=== PATIENT | female | born 1930 | race Caucasian/White ===

== ENCOUNTER 2017-09-02 19:41 | Inpatient (IN) | payer MEDICARE, BC ==
[~2017-09-02] VITALS: Ht 162.6 cm; Wt 78.1 kg
[~2017-09-02 19:41] MED LIST: CALCIUM CARBON650 M2 PO; CARDIZEM CD 18180 MG PO; CARTIA XT180 MG PO; COLCRYS0.6 MG PO; COUMADIN 6MG6 MG/TAB PO; COUMADIN4 MG PO; DEMADEX10 MG PO; HCTZ 25MG TAB25 MG PO; JANTOVEN5 MG PO; K-DUR20 MEQ PO; LIPITOR 10MG10 MG PO; MAG-OX 400400 MG/TAB PO; NORCO 325 MG-51 TAB PO; OMEGA-31 SGL PO; REQUIP0.25 MG PO; STOOL SOFTENER100 M2 PO; SUPER EPA 2002000 MG PO; VITAMIN B12 781 TAB PO; VITAMIN D31000 IU PO; ZYLOPRIM 100MG100 MG PO; ZYRTEC 10MG10 MG PO
[2017-09-02 20:35] LABS: BASO % 0.4 % (0.0-2.0); EOS % 0.1 % (0-4.0); GRAN # 6.5 (1.4-6.5); HEMATOCRIT 37.9 % (37.0-47.0); HEMOGLOBIN 12.7 g/dl (12.5-16.0); LYMPH % 12.2 % (20.0-51.0); MEAN CELL VOLUME 88 fl (80.0-100.0); MEAN CORPUSCULAR HEMOGLOBIN 30 pg (27.0-31.0); MEAN CORPUSCULAR HGB CONC 34 g/dl (33.0-37.0); MEAN PLATELET VOLUME 8.4 fl (7.4-10.4); MONO # 0.6 (0.1-0.6); MONO % 6.9 % (1.7-9.3); PLATELET COUNT 210 K/mm3 (130-400); RED BLOOD COUNT 4.29 M/mm3 (4.10-5.30); REDCELL DISTRIBUTION WIDTH-CV 14.9 % (11.5-14.5)
[2017-09-02] MEDS ORDERED: ZYLOPRIM 100MG100 MG PO (20:35)
[2017-09-02 20:47] LABS: ALBUMIN 4.1 gm/dL (3.5-5.0); BILIRUBIN,TOTAL 0.8 mg/dL (0.0-1.0); CALCIUM 9.5 mg/dL (8.4-10.2); CREATININE, serum 1.31 mg/dL (0.52-1.25); POTASSIUM 3.8 mmol/L (3.4-5.0); TOTAL PROTEIN 7.6 gm/dL (6.4-8.2)
[2017-09-02 20:51] LABS: INR 5.2 (0.8-3.0); PROTHROMBIN TIME 59.7 SECONDS (9.7-12.8)
[2017-09-02 21:00] LABS: TROPONIN-I 0.061 ng/mL (0.000-0.034)
[2017-09-02 23:51] LABS: COLLECTION METHOD CLEAN CATCH
[2017-09-03] VITALS (885 sets, daily range): BP systolic 96–165; BP diastolic 48–90; PULSE 72–87; TEMP 97.6–97.9; O2SAT 85–100
[2017-09-03 00:02] LABS: MUCOUS Present /lpf; PH 8 (5-8); SQUAMOUS EPITHELIAL 0-2 /hpf; URINE APPEARANCE Hazy; URINE BACTERIA Rare /hpf; URINE BILIRUBIN Negative (NEGATIVE); URINE BLOOD 1+ (NEGATIVE); URINE COLOR Yellow; URINE GLUCOSE Negative (NEGATIVE); URINE KETONE Negative (NEGATIVE); URINE LEUKOCYTE ESTERASE 3+ (NEGATIVE); URINE NITRATE Positive (NEGATIVE); URINE PROTEIN(semi-quant) Negative (NEGATIVE); URINE RBC None Seen /hpf; URINE UROBILINOGEN Negative (NEGATIVE)
[2017-09-03] MEDS ORDERED: FLEXERIL5 MG PO (02:08)
[2017-09-03] MEDS ORDERED: COLCRYS0.6 MG PO (02:09)
[2017-09-03] MEDS ORDERED: TYLENOL 500MG500 MG PO (02:10)
[2017-09-03 05:57] LABS: BASO % 0.3 % (0.0-2.0); EOS # 0.1 (0.0-0.7); EOS % 0.6 % (0-4.0); GRAN # 7.9 (1.4-6.5); GRAN % 80.4 % (42.2-75.2); HEMOGLOBIN 11.8 g/dl (12.5-16.0); LYMPH % 9.8 % (20.0-51.0); MEAN CELL VOLUME 91 fl (80.0-100.0); MEAN CORPUSCULAR HEMOGLOBIN 30 pg (27.0-31.0); MEAN CORPUSCULAR HGB CONC 33 g/dl (33.0-37.0); MEAN PLATELET VOLUME 8.8 fl (7.4-10.4); MONO # 0.9 (0.1-0.6); MONO % 8.6 % (1.7-9.3); PLATELET COUNT 222 K/mm3 (130-400); RED BLOOD COUNT 3.96 M/mm3 (4.10-5.30)
[2017-09-03 06:04] LABS: INR 3.4 (0.8-3.0); PROTHROMBIN TIME 38.5 SECONDS (9.7-12.8)
[2017-09-03 06:07] LABS: CREATININE, serum 1.2 mg/dL (0.52-1.25); POTASSIUM 3.7 mmol/L (3.4-5.0)
[2017-09-04] VITALS (53 sets, daily range): BP systolic 96–130; BP diastolic 42–60; PULSE 64–78; TEMP 96.7–98.5; O2SAT 85–99
[2017-09-04 06:26] LABS: BASO % 0.2 % (0.0-2.0); EOS # 0.1 (0.0-0.7); EOS % 0.6 % (0-4.0); GRAN # 7.7 (1.4-6.5); GRAN % 80.2 % (42.2-75.2); HEMOGLOBIN 11.5 g/dl (12.5-16.0); LYMPH # 0.8 (1.2-3.4); LYMPH % 8.8 % (20.0-51.0); MEAN CELL VOLUME 92 fl (80.0-100.0); MEAN CORPUSCULAR HEMOGLOBIN 30 pg (27.0-31.0); MEAN CORPUSCULAR HGB CONC 32 g/dl (33.0-37.0); MEAN PLATELET VOLUME 9.1 fl (7.4-10.4); MONO # 0.9 (0.1-0.6); MONO % 9.7 % (1.7-9.3); PLATELET COUNT 207 K/mm3 (130-400); RED BLOOD COUNT 3.88 M/mm3 (4.10-5.30); REDCELL DISTRIBUTION WIDTH-CV 15.3 % (11.5-14.5)
[2017-09-04 06:27] LABS: HEMATOCRIT 35.8 % (37.0-47.0); INR 2.7 (0.8-3.0); PROTHROMBIN TIME 31.2 SECONDS (9.7-12.8)
[2017-09-04 06:37] LABS: ANION GAP 8 mmol/L (7-16); BLOOD UREA NITROGEN 18 mg/dL (7-17); CALCIUM 8.9 mg/dL (8.4-10.2); CARBON DIOXIDE 30 mmol/L (22-30); CHLORIDE 98 mmol/L (98-107); CREATININE, serum 1.12 mg/dL (0.52-1.25); GLUCOSE 137 mg/dL (74-106); POTASSIUM 4.1 mmol/L (3.4-5.0); SODIUM 136 mmol/L (137-145)
[2017-09-05] VITALS (487 sets, daily range): BP systolic 92–123; BP diastolic 43–51; PULSE 52–69; TEMP 96.7–97.7; O2SAT 85–100
[2017-09-05 06:10] LABS: BASO % 0.3 % (0.0-2.0); EOS # 0.1 (0.0-0.7); EOS % 0.9 % (0-4.0); GRAN # 6.4 (1.4-6.5); GRAN % 82.1 % (42.2-75.2); HEMOGLOBIN 10.9 g/dl (12.5-16.0); LYMPH # 0.8 (1.2-3.4); LYMPH % 9.6 % (20.0-51.0); MEAN CELL VOLUME 91 fl (80.0-100.0); MEAN CORPUSCULAR HEMOGLOBIN 30 pg (27.0-31.0); MEAN CORPUSCULAR HGB CONC 33 g/dl (33.0-37.0); MEAN PLATELET VOLUME 9.1 fl (7.4-10.4); MONO # 0.5 (0.1-0.6); MONO % 6.6 % (1.7-9.3); PLATELET COUNT 200 K/mm3 (130-400); RED BLOOD COUNT 3.67 M/mm3 (4.10-5.30); REDCELL DISTRIBUTION WIDTH-CV 14.7 % (11.5-14.5)
[2017-09-05 06:11] LABS: HEMATOCRIT 33.5 % (37.0-47.0)
[2017-09-05 06:31] LABS: CALCIUM 8.7 mg/dL (8.4-10.2); CREATININE, serum 1.15 mg/dL (0.52-1.25); POTASSIUM 4.2 mmol/L (3.4-5.0)
[2017-09-05 08:08] LABS: PROTHROMBIN TIME 22.2 SECONDS (9.7-12.8)
[2017-09-05 18:04] LABS: HEMOGLOBIN 10.8 g/dl (12.5-16.0); MEAN CELL VOLUME 91 fl (80.0-100.0); MEAN CORPUSCULAR HEMOGLOBIN 30 pg (27.0-31.0); MEAN CORPUSCULAR HGB CONC 32 g/dl (33.0-37.0); MEAN PLATELET VOLUME 8.6 fl (7.4-10.4); PLATELET COUNT 215 K/mm3 (130-400); RED BLOOD COUNT 3.66 M/mm3 (4.10-5.30); REDCELL DISTRIBUTION WIDTH-CV 14.6 % (11.5-14.5)
[2017-09-05 18:05] LABS: HEMATOCRIT 33.3 % (37.0-47.0)
[2017-09-05 18:10] LABS: INR 1.6 (0.8-3.0); PROTHROMBIN TIME 18.4 SECONDS (9.7-12.8)
[2017-09-05 18:13] LABS: PARTIAL THROMBOPLASTIN TIME 30.8 SECONDS (26.0-37.0)
[2017-09-05 18:15] LABS: CALCIUM 8.4 mg/dL (8.4-10.2); CREATININE, serum 1.09 mg/dL (0.52-1.25); POTASSIUM 4.2 mmol/L (3.4-5.0)
[2017-09-06] VITALS (14 sets, daily range): BP systolic 98–126; BP diastolic 36–61; PULSE 54–76; TEMP 97.5–98.7
[2017-09-06 06:48] LABS: BASO % 0.2 % (0.0-2.0); EOS # 0.1 (0.0-0.7); GRAN # 6.3 (1.4-6.5); GRAN % 77.8 % (42.2-75.2); HEMOGLOBIN 11.8 g/dl (12.5-16.0); LYMPH # 1.2 (1.2-3.4); LYMPH % 15.2 % (20.0-51.0); MEAN CELL VOLUME 92 fl (80.0-100.0); MEAN CORPUSCULAR HEMOGLOBIN 30 pg (27.0-31.0); MEAN CORPUSCULAR HGB CONC 33 g/dl (33.0-37.0); MEAN PLATELET VOLUME 8.6 fl (7.4-10.4); MONO # 0.4 (0.1-0.6); MONO % 5.2 % (1.7-9.3); PLATELET COUNT 284 K/mm3 (130-400); RED BLOOD COUNT 3.96 M/mm3 (4.10-5.30); REDCELL DISTRIBUTION WIDTH-CV 14.7 % (11.5-14.5)
[2017-09-06 06:49] LABS: HEMATOCRIT 36.3 % (37.0-47.0)
[2017-09-06 07:06] LABS: INR 1.5 (0.8-3.0); PROTHROMBIN TIME 16.7 SECONDS (9.7-12.8)
[2017-09-06 07:07] LABS: CALCIUM 9.4 mg/dL (8.4-10.2); CREATININE, serum 1.09 mg/dL (0.52-1.25); POTASSIUM 4.1 mmol/L (3.4-5.0)
[2017-09-06] MEDS ORDERED: JANTOVEN3 M1 PO (11:48)
== END 2017-09-06 15:06 | disposition home health service (06) | DRG 281 ==
LOC: COL.ER 19:41 → ICU 09-03 00:04 → MEDICAL 09-05 16:39
PROVIDERS: Internal Medicine; Internal Medicine Interventional Cardiology; Nurse Practitioner
PROC: 3E0U33Z Introduction of Anti-inflammatory into Joints, Percutaneous Approach (ICD-10-PCS; principal; 2017-09-03)
PROC: 3E0U3BZ Introduction of Anesthetic Agent into Joints, Percutaneous Approach (ICD-10-PCS; 2017-09-03)
PROC: B2111ZZ Fluoroscopy of Multiple Coronary Arteries using Low Osmolar Contrast (ICD-10-PCS; 2017-09-06)
PROC: B2151ZZ Fluoroscopy of Left Heart using Low Osmolar Contrast (ICD-10-PCS; 2017-09-06)
PROC: 4A023N7 Measurement of Cardiac Sampling and Pressure, Left Heart, Percutaneous Approach (ICD-10-PCS; 2017-09-06)
DX: I21.4 Non-ST elevation (NSTEMI) myocardial infarction (principal); N17.9 Acute kidney failure, unspecified; Z66 Do not resuscitate; I10 Essential (primary) hypertension; Z86.711 Personal history of pulmonary embolism; Z79.01 Long term (current) use of anticoagulants; Z86.718 Personal history of other venous thrombosis and embolism; M75.102 Unspecified rotator cuff tear or rupture of left shoulder, not specified as traumatic; D64.9 Anemia, unspecified
CPT/HCPCS: 99223-AI; 99232-AI; 99239; C1760; C1894; G8984-GO; G8985-GO; J2250; J2270; J2360; J2405; J3010; J3301; J7030; Q9967

== ENCOUNTER 2017-10-06 10:58 | Emergency (ER) | payer MEDICARE, BC ==
[~2017-10-06] VITALS: Ht 162.6 cm; Wt 75.5 kg
[~2017-10-06 10:58] MED LIST changes: +FLEXERIL5 MG PO; +JANTOVEN3 M1 PO; +TYLENOL 500MG500 MG PO
[2017-10-06 11:01] VITALS: TEMP 98.5
[2017-10-06 12:30] LABS: BASO % 0.2 % (0.0-2.0); EOS % 0.3 % (0-4.0); GRAN # 6.8 (1.4-6.5); GRAN % 78.3 % (42.2-75.2); HEMOGLOBIN 11.7 g/dl (12.5-16.0); MEAN CELL VOLUME 91 fl (80.0-100.0); MEAN CORPUSCULAR HEMOGLOBIN 30 pg (27.0-31.0); MEAN CORPUSCULAR HGB CONC 33 g/dl (33.0-37.0); MEAN PLATELET VOLUME 8.6 fl (7.4-10.4); MONO # 0.8 (0.1-0.6); MONO % 9.6 % (1.7-9.3); PLATELET COUNT 170 K/mm3 (130-400); RED BLOOD COUNT 3.94 M/mm3 (4.10-5.30); REDCELL DISTRIBUTION WIDTH-CV 16.8 % (11.5-14.5)
[2017-10-06 12:31] LABS: HEMATOCRIT 35.8 % (37.0-47.0)
[2017-10-06] MEDS ORDERED: MEDROL 4MG DOSPA4 MG PO (12:50)
[2017-10-06 12:58] LABS: ERYTHROCYTE SEDIMENTATION RATE 34 mm/hr (0-30)
[2017-10-06 13:24] VITALS: BP 132/68; PULSE 94
== END 2017-10-06 13:23 | disposition home or self-care (01) ==
LOC: COL.ER 10:58
PROVIDERS: Family Medicine
DX: M54.12 Radiculopathy, cervical region (principal); M47.892 Other spondylosis, cervical region; I10 Essential (primary) hypertension; Z79.01 Long term (current) use of anticoagulants
CPT/HCPCS: J1885

== ENCOUNTER 2018-12-27 03:11 | Inpatient (IN) | payer MEDICARE, BC ==
[2018-12-27] VITALS (357 sets, daily range): BP systolic 64–115; BP diastolic 46–69; PULSE 98–110; TEMP 97.5–98.6; O2SAT 86–100
[~2018-12-27] VITALS: Ht 154.9 cm; Wt 76.0 kg
[~2018-12-27 03:11] MED LIST changes: +MEDROL 4MG DOSPA4 MG PO
[2018-12-27 03:33] LABS: BASO % 0.3 % (0.0-2.0); EOS % 0.2 % (0-4.0); GRAN # 8.4 (1.4-6.5); GRAN % 83.4 % (42.2-75.2); HEMATOCRIT 42.6 % (37.0-47.0); HEMOGLOBIN 13.8 g/dl (12.5-16.0); LYMPH # 1.2 (1.2-3.4); MEAN CELL VOLUME 92 fl (80.0-100.0); MEAN CORPUSCULAR HEMOGLOBIN 30 pg (27.0-31.0); MEAN CORPUSCULAR HGB CONC 32 g/dl (33.0-37.0); MONO # 0.4 (0.1-0.6); MONO % 3.7 % (1.7-9.3); PLATELET COUNT 234 K/mm3 (130-400); RED BLOOD COUNT 4.64 M/mm3 (4.10-5.30); REDCELL DISTRIBUTION WIDTH-CV 13.6 % (11.5-14.5)
[2018-12-27 03:35] LABS: INR 1.7 (0.8-3.0); PROTHROMBIN TIME 20.7 SECONDS (9.7-12.8)
[2018-12-27 03:39] LABS: ALBUMIN 4.6 gm/dL (3.5-5.0); BILIRUBIN,TOTAL 0.6 mg/dL (0.0-1.0); CALCIUM 9.7 mg/dL (8.4-10.2); CREATININE, serum 1.17 (0.52-1.25); POTASSIUM 3.8 mmol/L (3.4-5.0); TOTAL PROTEIN 7.7 gm/dL (6.4-8.2)
[2018-12-27 03:50] LABS: TROPONIN-I 0.031 ng/mL (0.000-0.035)
--- NOTE | 2018-12-27 10:30 | NUR ---
Report received from Saniya MCKEON in ER. Pt brought by terry to ICU 3. Moved to bed and placed on monitor. Assessment complete. Pt denies any pain at this time. Will continue to follow.
[2018-12-27 12:20] LABS: INR 1.8 (0.8-3.0)
--- NOTE | 2018-12-27 13:08 | NUR ---
Pt to OR at this time.
--- NOTE | 2018-12-27 15:15 | NUR ---
Pt returned from OR.
[2018-12-27 16:04] LABS: MEAN CELL VOLUME 94 fl (80.0-100.0); MEAN CORPUSCULAR HGB CONC 32 g/dl (33.0-37.0); MEAN PLATELET VOLUME 9.1 fl (7.4-10.4); PLATELET COUNT 161 K/mm3 (130-400); RED BLOOD COUNT 3.56 M/mm3 (4.10-5.30); REDCELL DISTRIBUTION WIDTH-CV 13.8 % (11.5-14.5)
[2018-12-27 16:08] LABS: HEMATOCRIT 33.4 % (37.0-47.0); HEMOGLOBIN 10.7 g/dl (12.5-16.0); MEAN CORPUSCULAR HEMOGLOBIN 30 pg (27.0-31.0)
[2018-12-27 16:15] LABS: ARTERIAL BLD GAS O2 SATURATION 98.6 % (92-100); ARTERIAL BLD GAS TCO2 CT 16.3; ARTERIAL BLOOD GAS BASE EXCESS -7.3 (-2-2); ARTERIAL BLOOD GAS HCO3 15.5 meq/L (22-26); ARTERIAL BLOOD GAS PCO2 24.5 mmHg (35-45); ARTERIAL BLOOD GAS pH 7.42 (7.35-7.45)
[2018-12-27 16:15] LABS: ALBUMIN 2.2 gm/dL (3.5-5.0); BILIRUBIN,TOTAL 0.5 mg/dL (0.0-1.0); CALCIUM 7.1 mg/dL (8.4-10.2); CREATININE, serum 1.13 (0.52-1.25); POTASSIUM 3.8 mmol/L (3.4-5.0); TOTAL PROTEIN 4.2 gm/dL (6.4-8.2)
[2018-12-27 16:16] LABS: ARTERIAL BLOOD GAS PO2 173.6 mmHg (80-100)
--- NOTE | 2018-12-27 17:38 | NUR ---
Pt opening eyes to speech at this time.
--- NOTE | 2018-12-27 19:15 | NUR ---
Received report from LINDA Santos.
--- NOTE | 2018-12-27 19:31 | NUR ---
Report given to Julissa MCKEON and care transfered.
[2018-12-27 22:51] LABS: ARTERIAL BLD GAS O2 SATURATION 98.3 % (92-100); ARTERIAL BLD GAS TCO2 CT 14.9; ARTERIAL BLOOD GAS BASE EXCESS -8.2 (-2-2); ARTERIAL BLOOD GAS HCO3 14.3 meq/L (22-26); ARTERIAL BLOOD GAS PCO2 21.4 mmHg (35-45); ARTERIAL BLOOD GAS PO2 172.4 mmHg (80-100); ARTERIAL BLOOD GAS pH 7.44 (7.35-7.45)
[2018-12-28] VITALS (494 sets, daily range): BP systolic 98–136; BP diastolic 47–82; PULSE 94–106; TEMP 97.9–99.3; O2SAT 73–100
--- NOTE | 2018-12-28 00:28 | NUR ---
RECIEVED VENT CHANGES FROM [facility] DUE TO ABG RESULTS. FI02 REDUCED FROM 40% TO 30%. RATE CHANGED FROM 18 TO 16. WILL REPEATE AN ABG AT 0115 TO ASSESS THE CHANGES.
[2018-12-28 01:55] LABS: ARTERIAL BLD GAS O2 SATURATION 92.1 % (92-100); ARTERIAL BLD GAS TCO2 CT 19.9; ARTERIAL BLOOD GAS BASE EXCESS -3.9 (-2-2); ARTERIAL BLOOD GAS PCO2 27.8 mmHg (35-45); ARTERIAL BLOOD GAS PO2 60.5 mmHg (80-100); ARTERIAL BLOOD GAS pH 7.45 (7.35-7.45)
[2018-12-28 02:58] LABS: BASO % 0.3 % (0.0-2.0); GRAN # 13.2 (1.4-6.5); GRAN % 85.3 % (42.2-75.2); HEMATOCRIT 29.1 % (37.0-47.0); HEMOGLOBIN 9.4 g/dl (12.5-16.0); LYMPH # 1.1 (1.2-3.4); LYMPH % 7.4 % (20.0-51.0); MEAN CELL VOLUME 93 fl (80.0-100.0); MEAN CORPUSCULAR HEMOGLOBIN 30 pg (27.0-31.0); MEAN CORPUSCULAR HGB CONC 32 g/dl (33.0-37.0); MEAN PLATELET VOLUME 9.7 fl (7.4-10.4); MONO % 6.7 % (1.7-9.3); PLATELET COUNT 162 K/mm3 (130-400); RED BLOOD COUNT 3.14 M/mm3 (4.10-5.30)
[2018-12-28 03:06] LABS: INR 1.1 (0.8-3.0); PROTHROMBIN TIME 13.2 SECONDS (9.7-12.8)
[2018-12-28 03:07] LABS: ALBUMIN 2.1 gm/dL (3.5-5.0); BILIRUBIN,TOTAL 0.4 mg/dL (0.0-1.0); CALCIUM 7.2 mg/dL (8.4-10.2); CREATININE, serum 1.34 (0.52-1.25); POTASSIUM 4.1 mmol/L (3.4-5.0); TOTAL PROTEIN 4.1 gm/dL (6.4-8.2)
--- NOTE | 2018-12-28 03:12 | NUR ---
WHEN DOING VENT CHECK AT 0153, VENT FI02 WAS CHANGED BASED ON PTS NEW ABG RESULTS OF A PA02 OF 60. INCREASED FI02 FROM 30% TO 40% WILL ASSESS PTS VALUES IN THE MORNING WITH 0500 ABG. VBG WAS DONE AT 0240 AND THE SV02 WAS 64, THEREFORE THE RN FOR THIS PT WAS CALLED WITH THE RESULTS
[2018-12-28 03:32] LABS: TROPONIN-I 0.252 ng/mL (0.000-0.035)
--- NOTE | 2018-12-28 04:39 | NUR ---
[facility] CONTACTED FOR LACTIC LAB ORDER AT APPROX 2145 ON 12/27/18. CALLED FOR UPDATE ON PATIENT AT APPROX 0050 ON 12/28/18. MAPS HAD BEEN TRENDING DOWN SO LEVO WAS INCREASED TO 0.22 MCG/KG/MIN OR 59.4 ML/HR AT 0104. [facility] WAS NOTIFIED AT APPROX 0130 OF PATIENT'S LOW URINE OUTPUT. RECEIVED ORDERS TO FLUSH CHANG AND BOLUS 500 ML OF LR STAT. FOLLOWING BOLUS, INSTRUCTED TO NOTIFY [facility] IF URINE OUTPUT LESS THAN 30ML X 2HR. BOLUS WAS FINISHED AT APPROX. 0230. AT APPROX 0315, [facility] NOTIFIED OF BUMPED TROPONIN OF 0.252 FROM PREVIOUS RESULT OF 0.22, AT THIS TIME, [facility] WAS NOTIFIED URINE OUTPUT HAD BEEN ABOUT 52ML SINCE INITIAL NOTIFICATION AT 0130, FOLLOWING CHANG FLUSH AND FLUID BOLUS. [facility] REQUESTED THAT CHEST XRAY BE ACQUIRED BEFORE 0500 IF POSSIBLE. RADIOLOGY WAS NOTIFIED AND CAME FOR CHEST XRAY SHORTLY AFTER. [facility] ORDERED PRN ALBUTEROL NEBULIZER TREATMENTS EVERY 4 HOURS AND PRN FOR EXPIRATORY WHEEZES IN BILATERAL BASES. A REPEAT TROPONIN WAS ORDERED FOR 0800. A SECOND LR BOLUS OF 500ML WAS ORDERED, HOWEVER, UPON FURTHER ASSESSMENT, PATIENT HAD DEVELOPED COURSE LUNG SOUNDS THROUGHOUT ALL MURPHY. [facility] WAS NOTIFIED OF CHANGE IN LUNG SOUNDS AT 0430, AND ORDERED THAT THE SECOND LR BOLUS BE HELD.
[2018-12-28 05:00] LABS: ARTERIAL BLD GAS O2 SATURATION 97.5 % (92-100); ARTERIAL BLD GAS TCO2 CT 19.8; ARTERIAL BLOOD GAS BASE EXCESS -3.2 (-2-2); ARTERIAL BLOOD GAS PCO2 25.4 mmHg (35-45); ARTERIAL BLOOD GAS PO2 108.8 mmHg (80-100); ARTERIAL BLOOD GAS pH 7.49 (7.35-7.45)
--- NOTE | 2018-12-28 05:44 | NUR ---
NOT WEANING TRIAL IS DONE PTS BP DROPS TOO LOW WHEN SEDATION IS LOWERED AND PT HASN'T BEEN INTUBATED FOR OVER 24 HOURS.
--- NOTE | 2018-12-28 07:10 | NUR ---
Report received from Julissa MCKEON and care resumed.
--- NOTE | 2018-12-28 07:27 | NUR ---
GAVE REPORT TO LINDA VILLANUEVA.
--- NOTE | 2018-12-28 07:30 | NUR ---
Dr Sanchez in to see pt at this time.
--- NOTE | 2018-12-28 09:28 | NUR ---
Assessment complete and AM meds given. Pt remains on levophed. Pt more awake, propofol titrated accordingly. No concerns at this time, will contineu to follow.
--- NOTE | 2018-12-28 09:42 | NUR ---
Dr Martinez in to see pt at this time.
--- NOTE | 2018-12-28 09:58 | NUR ---
Patient lives at home with her daughter (Marisa Nicolas phone: [phone]) in [place], [place] and plans to return home with her daughter upon discharge. Patient is moderately indepednent with daily living activites as she does drive and cook as needed and she uses a walker for mobility assistance and has a raised toilet seat. Patient's primary care physician is Dr. Curt Wright, her pharmacy is primarily [facility] ([place]) and [facility] when she needs medications delivered. Patient does have advance directive for healthcare completed and is also a DNR with her daughter (Marisa Nicolas) being her primary DPOA. Patient recently had a surgery procedure and is on a ventilator so her discharge date is still to be determined by the medical staff and licensed social worker will follow as needed.
--- NOTE | 2018-12-28 14:17 | NUR ---
Pt given CBB with linen change, cath care, oral care, and hair wash. Tolerated well. Will continue to follow.
--- NOTE | 2018-12-28 17:03 | NUR ---
Pt on light sedation, opens eyes, and follows commands appropriately.
--- NOTE | 2018-12-28 19:20 | NUR ---
Report given to Chris MCKEON and care transfered.
--- NOTE | 2018-12-28 19:35 | NUR ---
Patient assessment completed and charted at this time, please see documentation for details. Patient resting in bed, tolerating ventilator well at this time. No new issues to report, will continue to monitor.
[2018-12-29] VITALS (473 sets, daily range): BP systolic 93–131; BP diastolic 35–83; PULSE 77–108; TEMP 98–99.9; O2SAT 80–100
[2018-12-29 04:31] LABS: BASO % 0.2 % (0.0-2.0); EOS % 0.3 % (0-4.0); GRAN # 8.4 (1.4-6.5); GRAN % 79.4 % (42.2-75.2); HEMATOCRIT 20.6 % (37.0-47.0); LYMPH # 1.3 (1.2-3.4); LYMPH % 12.4 % (20.0-51.0); MEAN CELL VOLUME 90 fl (80.0-100.0); MEAN CORPUSCULAR HEMOGLOBIN 30 pg (27.0-31.0); MEAN CORPUSCULAR HGB CONC 34 g/dl (33.0-37.0); MEAN PLATELET VOLUME 9.9 fl (7.4-10.4); MONO # 0.8 (0.1-0.6); MONO % 7.2 % (1.7-9.3); PLATELET COUNT 122 K/mm3 (130-400)
[2018-12-29 04:32] LABS: HEMOGLOBIN 6.9 g/dl (12.5-16.0)
[2018-12-29 04:37] LABS: INR 1.1 (0.8-3.0); PROTHROMBIN TIME 12.5 SECONDS (9.7-12.8)
[2018-12-29 04:41] LABS: BILIRUBIN,TOTAL 0.4 mg/dL (0.0-1.0); CREATININE, serum 1.19 (0.52-1.25); POTASSIUM 3.6 mmol/L (3.4-5.0); TOTAL PROTEIN 3.9 gm/dL (6.4-8.2)
[2018-12-29 05:06] LABS: BASO % 0.2 % (0.0-2.0); EOS % 0.2 % (0-4.0); GRAN # 8.4 (1.4-6.5); GRAN % 78.5 % (42.2-75.2); LYMPH # 1.4 (1.2-3.4); MEAN CELL VOLUME 93 fl (80.0-100.0); MEAN CORPUSCULAR HGB CONC 33 g/dl (33.0-37.0); MEAN PLATELET VOLUME 9.5 fl (7.4-10.4); MONO # 0.8 (0.1-0.6); MONO % 7.6 % (1.7-9.3); PLATELET COUNT 108 K/mm3 (130-400); RED BLOOD COUNT 2.29 M/mm3 (4.10-5.30); REDCELL DISTRIBUTION WIDTH-CV 14.1 % (11.5-14.5)
[2018-12-29 05:08] LABS: HEMATOCRIT 21.2 % (37.0-47.0); HEMOGLOBIN 6.9 g/dl (12.5-16.0); MEAN CORPUSCULAR HEMOGLOBIN 30 pg (27.0-31.0)
[2018-12-29 05:17] LABS: BILIRUBIN,TOTAL 0.4 mg/dL (0.0-1.0); CREATININE, serum 1.22 (0.52-1.25); POTASSIUM 3.7 mmol/L (3.4-5.0)
[2018-12-29 05:26] LABS: ARTERIAL BLD GAS O2 SATURATION 98.2 % (92-100); ARTERIAL BLD GAS TCO2 CT 20.5; ARTERIAL BLOOD GAS BASE EXCESS -3.1 (-2-2); ARTERIAL BLOOD GAS HCO3 19.7 meq/L (22-26); ARTERIAL BLOOD GAS PCO2 27.3 mmHg (35-45); ARTERIAL BLOOD GAS pH 7.48 (7.35-7.45)
--- NOTE | 2018-12-29 08:00 | NUR ---
PT INTUBATED AND ON VENTILATOR. PT AROUSES EASILY AND FOLLOWS COMMANDS. PT HAS NGT TO RIGHT NARES. GASTRIC DRAINAGE NOTED TO BE GREEN IN COLOR. PT HAS MIDLINE ABDOMINAL DRESSING THAT IS CLEAN AND DRY. PT'S ABD NONDISTENDED, SOFT, BS ACTIVE TO ALL 4 QUADRANTS. PT HAS CHANG CATHETER IN PLACE WITH CLEAR, YELLOW URINE NOTED. PT HAS HEALED ULCER NOTED TO COCCYX THAT IS DISCOLORED, SLIGHTLY MCCLAIN/PURPLE. PERIPHERY OF ULCER IS PINK, NO REDNESS NOTED. NO OPEN AREAS NOTED. PT HAS FEW SCATTERED PREVIOUS VENOUS STASIS ULCERS NOTED TO BILATERAL LOWER EXTREMITIES TO LEFT MEDIAL ANKLE/KIDD AND ANTERIOR ASPECT OF RIGHT FOOT. NO OPEN AREAS NOTED. PT HAS 1+ GENERALIZED EDEMA NOTED. PT HAS 3+ EDEMA NOTED TO BILATERAL LOWER EXTREMITIES.
--- NOTE | 2018-12-29 08:00 | NUR ---
REPORT RECEIVED FROM HUONG MCKEON, CARE ASSUMED.
--- NOTE | 2018-12-29 08:05 | NUR ---
DR ALANIZ AT BEDSIDE. ATTEMPTED PS/CPAP. PROPOFOL GTT PLACED ON STANDBY. FENTANYL GTT DECREASED. WEANING TRIAL UNSUCCESSFUL D/T PT RESPIRATORY EFFORT DECREASED. PT BREATHING SHALLOW. PREVIOUS VENT SETTINGS RESUMED AFTER LESS THAN 5 MINS. WILL ATTEMPT AGAIN TOMORROW. PROPOFOL AND FENT GTTS RESUMED AT PREVIOUS RATES.
--- NOTE | 2018-12-29 09:00 | NUR ---
PT'S MORNING HGB RECORDED 6.9. HGB RECHECKED VIA PERIPHERAL DRAW. HGB RETURNED AT 7.2. DR ALANIZ AWARE. PROVIDER STATES TO RECHECK HGB AT 1800 AND IF LESS THAN 7, TRANSFUSE 1 UNIT PRBC. TV DECREASED BY DR ALANIZ TO 400. CVP INITATIED. CVP RECORDED 10. DR ALANIZ MADE AWARE. SPOKE WITH PT'S DAUGHTER. UPDATED FAMILY ON PATIENT'S STATUS AND PLAN OF CARE. DAUGHTER STATES SHE WILL CALL BACK LATER TODAY FOR AN UPDATE. DAUGHTER WILL CALL IN AM WELL TO SPEAK WITH DR ALANIZ DAUGHTER IS ON VACATION AND NO LONGER LIVES IN [place]. POTASSIUM REPLACEMENT PROTOCOL INITATED PER DR ALANIZ. WILL CHECK WITH DR MORALES IF HE WOULD LIKE TF INITATED PER DR ALANIZ AND SENIOR ADMINISTRATIVE SUPPORT.
[2018-12-29 09:23] LABS: HEMATOCRIT 22.2 % (37.0-47.0); HEMOGLOBIN 7.2 g/dl (12.5-16.0)
--- NOTE | 2018-12-29 11:53 | NUR ---
DR MORALES AT BEDSIDE. PROVIDER OK WITH INITIATING TF IF OTHER PROVIDERS WOULD LIKE TO START THEM. PROVIDER STATES OK TO CHANGE DRESSING TYPE TO A "BOILER WELDER" DRESSING.
[2018-12-29 12:53] LABS: MAGNESIUM 1.5 mg/dL (1.6-2.3); PHOSPHOROUS 2.9 mg/dL (2.5-4.5)
--- NOTE | 2018-12-29 13:00 | NUR ---
TUBE INITIATED AT 15ML/HR VIA NGT.
[2018-12-29 13:12] LABS: ARTERIAL BLD GAS O2 SATURATION 98.3 % (92-100); ARTERIAL BLD GAS TCO2 CT 21.9; ARTERIAL BLOOD GAS BASE EXCESS -1.1 (-2-2); ARTERIAL BLOOD GAS HCO3 21.2 meq/L (22-26); ARTERIAL BLOOD GAS PCO2 25.2 mmHg (35-45); ARTERIAL BLOOD GAS PO2 182.7 mmHg (80-100); ARTERIAL BLOOD GAS pH 7.54 (7.35-7.45)
--- NOTE | 2018-12-29 13:21 | NUR ---
UPDATED DR ALANIZ REGARDING MAG LEVEL AND ABG. FIO2 DECREASED TO 30%. ADMINISTERING 2GM MAG PER VORB.
--- NOTE | 2018-12-29 17:00 | NUR ---
DR FAUSTIN AT BEDSIDE AND UPDATED ON PT'S CURRENT STATUS AND DISCUSSED POC WITH. NO NEW ORDERS RECEIVED AT THIS TIME.
--- NOTE | 2018-12-29 17:16 | NUR ---
SEDATION VACATION ON HOLD AT THIS TIME PER DR ALANIZ REQUEST. PT BREATHING OVER THE VENT SETTINGS AND BECOMING MORE ALKALOTIC AT THIS TIME. ORDERS TO KEEP PT SEDATED THROUGH THE NIGHT TO HELP CORRECT BLOOD GAS TO TRY AND EXTUBATE TOMORROW.
--- NOTE | 2018-12-29 17:35 | NUR ---
RESIDUAL TF CHECKED, 35ML. TF RESTARTED PER ORDERS.
--- NOTE | 2018-12-29 18:12 | NUR ---
LAB AT BEDSIDE.
[2018-12-29 18:13] LABS: ARTERIAL BLD GAS O2 SATURATION 97.9 % (92-100); ARTERIAL BLOOD GAS BASE EXCESS -3.5 (-2-2); ARTERIAL BLOOD GAS HCO3 19.2 meq/L (22-26); ARTERIAL BLOOD GAS PCO2 25.6 mmHg (35-45); ARTERIAL BLOOD GAS PO2 141.4 mmHg (80-100); ARTERIAL BLOOD GAS pH 7.49 (7.35-7.45)
[2018-12-29 19:33] LABS: HEMATOCRIT 19.1 % (37.0-47.0); HEMOGLOBIN 6.3 g/dl (12.5-16.0)
--- NOTE | 2018-12-29 20:00 | NUR ---
Patient assessed, vitals stable, patient arousable to voice and touch, follows commands easily and is calm. Will continue to monitor.
[2018-12-30] VITALS (724 sets, daily range): BP systolic 103–146; BP diastolic 37–66; PULSE 70–99; TEMP 97.8–99.1; O2SAT 73–100
[2018-12-30 05:15] LABS: ARTERIAL BLD GAS O2 SATURATION 97.8 % (92-100); ARTERIAL BLD GAS TCO2 CT 20.5; ARTERIAL BLOOD GAS BASE EXCESS -3.4 (-2-2); ARTERIAL BLOOD GAS HCO3 19.6 meq/L (22-26); ARTERIAL BLOOD GAS PCO2 28.7 mmHg (35-45); ARTERIAL BLOOD GAS pH 7.45 (7.35-7.45)
[2018-12-30 05:16] LABS: ARTERIAL BLOOD GAS PO2 134.3 mmHg (80-100)
[2018-12-30 06:31] LABS: BASO % 0.2 % (0.0-2.0); EOS # 0.1 (0.0-0.7); EOS % 1.5 % (0-4.0); GRAN # 6.9 (1.4-6.5); LYMPH # 1.5 (1.2-3.4); LYMPH % 16.2 % (20.0-51.0); MEAN CELL VOLUME 89 fl (80.0-100.0); MEAN CORPUSCULAR HGB CONC 33 g/dl (33.0-37.0); MEAN PLATELET VOLUME 9.8 fl (7.4-10.4); MONO # 0.5 (0.1-0.6); MONO % 5.7 % (1.7-9.3); PLATELET COUNT 102 K/mm3 (130-400); RED BLOOD COUNT 2.64 M/mm3 (4.10-5.30); REDCELL DISTRIBUTION WIDTH-CV 14.7 % (11.5-14.5)
[2018-12-30 06:43] LABS: ALBUMIN 2.2 gm/dL (3.5-5.0); BILIRUBIN,TOTAL 0.6 mg/dL (0.0-1.0); CALCIUM 7.4 mg/dL (8.4-10.2); CREATININE, serum 0.91 (0.52-1.25); POTASSIUM 3.6 mmol/L (3.4-5.0); TOTAL PROTEIN 4.3 gm/dL (6.4-8.2)
[2018-12-30 06:46] LABS: HEMATOCRIT 23.6 % (37.0-47.0); HEMOGLOBIN 7.8 g/dl (12.5-16.0); MEAN CORPUSCULAR HEMOGLOBIN 30 pg (27.0-31.0)
[2018-12-30 07:10] LABS: INR 0.9 (0.8-3.0)
--- NOTE | 2018-12-30 07:31 | NUR ---
NIF -20 AT THIS TIME. ABG DRAWN ON CPAP TO CHECK STATUS. AWAITING RESULTS TO DETERMINE IF PT IS SUITABLE FOR EXTUBATION. PT HAS A GOOD CUFF LEAK. DR. ALANIZ AT BEDSIDE. PT CAN LIFT HER HEAD OFF OF PILLOW AND IS FOLLOWING COMMANDS.
[2018-12-30 07:49] LABS: ARTERIAL BLD GAS O2 SATURATION 96.5 % (92-100); ARTERIAL BLD GAS TCO2 CT 22.5; ARTERIAL BLOOD GAS HCO3 21.4 meq/L (22-26); ARTERIAL BLOOD GAS PCO2 35.4 mmHg (35-45)
--- NOTE | 2018-12-30 07:51 | NUR ---
Pulm in to eval. Plan extubation this am. Family provided update via phone.
--- NOTE | 2018-12-30 07:58 | NUR ---
Restraints removed. Extubated to NC at 2L tolerated well. Oral suctioned mod amount of clear thin secretions.
--- NOTE | 2018-12-30 07:58 | NUR ---
ABG RESULTS GIVEN TO DR. ALANIZ AT BEDSIDE. ORDER TO EXTUBATE GIVEN. PT SUCTIONED BOTH ORALLY AND VIA OETT. AFTER EXTUBATION PT WAS PLACED ON 3LNC THAT WAS QUICKLY WEANED TO 2LNC. PT HAS A GOOD COUGH. PT IS PRODUCING A MODERATE AMOUNT OF CLEAR/WHITE SECRETIONS. NO STRIDOR NOTED.
--- NOTE | 2018-12-30 16:32 | NUR ---
Grand-daughter and grandson in visitinging with patient.
[2018-12-30 17:35] LABS: HEMOGLOBIN 7.3 g/dl (12.5-16.0)
[2018-12-30 18:20] LABS: HEMATOCRIT 23.3 % (37.0-47.0)
[2018-12-31] VITALS (625 sets, daily range): BP systolic 111–160; BP diastolic 51–72; PULSE 75–95; TEMP 98–99.1; O2SAT 88–100
[2018-12-31 05:40] LABS: CALCIUM 7.5 mg/dL (8.4-10.2); CREATININE, serum 0.77 (0.52-1.25); POTASSIUM 4.3 mmol/L (3.4-5.0)
[2018-12-31 06:28] LABS: HEMOGLOBIN 6.8 g/dl (12.5-16.0)
--- NOTE | 2018-12-31 07:15 | NUR ---
RECEIVED REPORT FROM LINDA RAE. PT LYING IN BED WATCHING TV. PT AAOX3 AND TALKING TO STAFF EASILY. PT ON 1L VIA NC. FC PATENT AND DRAINING TO GRAVITY. CALL LIGHT WITHIN REACH. IV INFUSING WITHOUT DIFFICULTIES.
[2018-12-31 07:16] LABS: HEMATOCRIT 21.8 % (37.0-47.0); MEAN CELL VOLUME 93 fl (80.0-100.0); MEAN CORPUSCULAR HEMOGLOBIN 29 pg (27.0-31.0); MEAN CORPUSCULAR HGB CONC 31 g/dl (33.0-37.0); MEAN PLATELET VOLUME 9.5 fl (7.4-10.4); PLATELET COUNT 117 K/mm3 (130-400); RED BLOOD COUNT 2.34 M/mm3 (4.10-5.30); REDCELL DISTRIBUTION WIDTH-CV 14.8 % (11.5-14.5)
--- NOTE | 2018-12-31 08:30 | NUR ---
DR ALANIZ AT [facility] FOR ASSESSMENT. EDUCATED PT ON INCENTIVE SPIROMETER. WILL OOBTAIN FROM RT. PT VERBALIED UNDERSTANDING AT THIS TIME.
[2018-12-31 09:17] LABS: HEMOGLOBIN 6.6 g/dl (12.5-16.0)
[2018-12-31 09:22] LABS: HEMATOCRIT 21.3 % (37.0-47.0); MEAN CELL VOLUME 93 fl (80.0-100.0); MEAN CORPUSCULAR HEMOGLOBIN 29 pg (27.0-31.0); MEAN CORPUSCULAR HGB CONC 31 g/dl (33.0-37.0); MEAN PLATELET VOLUME 9.2 fl (7.4-10.4); PLATELET COUNT 124 K/mm3 (130-400); RED BLOOD COUNT 2.28 M/mm3 (4.10-5.30); REDCELL DISTRIBUTION WIDTH-CV 14.8 % (11.5-14.5)
[2018-12-31 09:37] LABS: BASO % 0.2 % (0.0-2.0); EOS % 3.8 % (0-4.0); GRAN # 3.5 (1.4-6.5); LYMPH % 17.1 % (20.0-51.0); MONO % 9.7 % (1.7-9.3)
[2018-12-31 09:38] LABS: EOS # 0.2 (0.0-0.7); LYMPH # 0.9 (1.2-3.4); MONO # 0.5 (0.1-0.6)
--- NOTE | 2018-12-31 10:15 | NUR ---
DR FAUSTIN AT BEDSIDE FOR ASSESSMENT. NOTIFIED OF HGB, NEW ORDERS RECEVIED. PT EDUCATED ON PRBC ADMINISTRATION. VERBALIZED UNDERSTANDING.
--- NOTE | 2018-12-31 10:50 | NUR ---
LOCK ASSEMBLER student attempted to contact the patient's daughter/ DPOA-HC, Cherelle Nicolas and left a message. Physical therapy is recommmending a nursing home stay or inpatient rehab, LOCK ASSEMBLER student wanted to discuss options with DPOA-HC. guest services assistant will continue to follow.
--- NOTE | 2018-12-31 10:50 | NUR ---
PHYSICAL THERAPY AT BEDSIDE. ASSISTED PT TO CHAIR WITH GAIT BELT. VERY LIMITED MOVEMENT BUT PT DOES ATTEMPT TO HELP THERAPY. CALL LIGHT WITHIN REACH. PT PLACED ON RA AT THIS TIME. POX MAINTAING >90%. OTHER VSS.
--- NOTE | 2018-12-31 11:03 | NUR ---
USED [employer] student spoke to DPOA-HC/daughter about the patient choice form. DPOA-HC verbalized the first choice is [facility] in [place], second choice is Inpatient Rehab. USED [employer] student faxed referral to [facility] then contacted GAMALIEL Castro Director and left a message about referral. radiology services manager will continue to follow.
--- NOTE | 2018-12-31 13:07 | NUR ---
#1 PRBC STARTED. PT VERBALIZED UNDERSTANDING. PT ASSISTED BACK TO BED BY PHYSICAL THERAPY. CALL LIGHT WITHIN REACH.
--- NOTE | 2018-12-31 15:11 | NUR ---
Enriqueta from [facility] reports they can accept the patient. clinical services professional will continue to follow.
--- NOTE | 2018-12-31 16:00 | NUR ---
PT EDUCATED ON TRANSFER TO THE MEDICAL FLOOR. VERBALIZED UNDERSTANDING.
--- NOTE | 2018-12-31 16:15 | NUR ---
PT PLACED ON 1L VIA NC, POX DECREASING TO 88-89% WHILE IN BED.
--- NOTE | 2018-12-31 16:30 | NUR ---
REQUESTED PT TO [facility] I.S. RETURN DEMONSTRATION. PT REMAINS WEAK BUT IS COMPLAINT WITH CARE.
--- NOTE | 2018-12-31 17:31 | NUR ---
CALLED REPORT TO SURICAL NURSELUIS RN. PT TO BE TRANSFERRED TO [facility]. ALL PERSONAL BELONGINGS SENT WITH PT.
[2018-12-31 18:54] LABS: HEMOGLOBIN 8.7 g/dl (12.5-16.0)
[2019-01-01] VITALS (7 sets, daily range): BP systolic 129–152; BP diastolic 49–72; PULSE 80–96; TEMP 97.5–98.6
--- NOTE | 2019-01-01 01:29 | NUR ---
PATIENT IN BED ASLEEP. ALERT AND ORIENTED. DENIES NEEDS FOR PAIN MEDICATION. PHILL PICC LINE FLUSHED WITH 10ML IN BOTH PORTS. GOOD BLOOD RETURN. ABDOMINAL MIDLINE INCISION IS COVERED WITH ABD PAD AND TAPE. CHANG DRAINING CLEAR YELLOW URINE. WILL CONTINUE TO MONITOR.
--- NOTE | 2019-01-01 09:47 | NUR ---
SW attended clinical rounds. Patient was accepted to [facility] for a skilled stay. Hospitalist reports patient can possibly discharge tomorrow. SW followed up with patient and patient is agreeable to [facility]. Patient reports she knows everyone there and enjoyed her time there in the past. SW will update [facility].
[2019-01-01 09:57] LABS: BASO % 0.4 % (0.0-2.0); EOS # 0.2 (0.0-0.7); EOS % 3.1 % (0-4.0); GRAN # 3.4 (1.4-6.5); GRAN % 64.1 % (42.2-75.2); LYMPH # 1.2 (1.2-3.4); LYMPH % 22.2 % (20.0-51.0); MEAN CELL VOLUME 90 fl (80.0-100.0); MEAN CORPUSCULAR HGB CONC 32 g/dl (33.0-37.0); MONO # 0.5 (0.1-0.6); MONO % 9.6 % (1.7-9.3); PLATELET COUNT 122 K/mm3 (130-400); REDCELL DISTRIBUTION WIDTH-CV 15.1 % (11.5-14.5)
[2019-01-01 09:58] LABS: MEAN CORPUSCULAR HEMOGLOBIN 29 pg (27.0-31.0)
[2019-01-01 10:07] LABS: CALCIUM 8.1 mg/dL (8.4-10.2); CREATININE, serum 0.69 (0.52-1.25); POTASSIUM 3.7 mmol/L (3.4-5.0)
--- NOTE | 2019-01-01 13:19 | NUR ---
resident alert and oriented to self. resting in chair. PT working with resident. two person assistance transfer with gait belt and walker. SCD's applied. incision mid ABD, clean dry intact. complaining of pain to incision area with movement. central line remains upper right arm and is patent. bandage and healing over left subclavian. resident complaining of cough and her stomach itching. dressing applied to coccyx for complaints of tailbone pain. remains on 1L O2 via NC. bed alarms used in chair and bed. resdient eating small portions of food with complaints of feeling full quickly. remains dependent drainage and has not passed a bowel movement yet. call light within reach. nursing staff to encourage fluids. this nurse reported off to LINDA Iglesias.
--- NOTE | 2019-01-01 18:57 | NUR ---
Patient has been doing well today. She sat up in the chair twice today and did well with it. She has been eating and drinking well. Denies pain. She is moving slowly but did well with the walker. She is tolearating diet without nausea. FAmily here to visit. No other changes at this time. Call light within reach.
--- NOTE | 2019-01-02 00:49 | NUR ---
PATIENT DOING WELL THIS EVENING. DENIES PAIN AND NEED FOR MEDICATION. SOME COMPLAINT OF A COUGH. DOCTOR RICO CALLED, SOPHIAN KEY BEJARANO ORDERED. SHE TOOK THIS AND TYLENOL PO WITHOUT ISSUE. INCISION SITE DRESSING LOOKS GOOD. WILL CONTINUE TO MONITOR.
[2019-01-02 04:00] VITALS: BP 132/48; PULSE 80; TEMP 98
[2019-01-02 07:57] LABS: BASO % 0.4 % (0.0-2.0); EOS # 0.1 (0.0-0.7); EOS % 2.9 % (0-4.0); GRAN # 2.5 (1.4-6.5); GRAN % 55.4 % (42.2-75.2); LYMPH # 1.2 (1.2-3.4); MEAN CELL VOLUME 91 fl (80.0-100.0); MEAN CORPUSCULAR HGB CONC 32 g/dl (33.0-37.0); MEAN PLATELET VOLUME 9.3 fl (7.4-10.4); MONO # 0.6 (0.1-0.6); MONO % 13.6 % (1.7-9.3); PLATELET COUNT 141 K/mm3 (130-400); REDCELL DISTRIBUTION WIDTH-CV 14.7 % (11.5-14.5)
[2019-01-02 08:06] LABS: INR 0.9 (0.8-3.0); PROTHROMBIN TIME 10.9 SECONDS (9.7-12.8)
[2019-01-02 08:07] LABS: CREATININE, serum 0.65 (0.52-1.25); HEMATOCRIT 27.3 % (37.0-47.0); HEMOGLOBIN 8.7 g/dl (12.5-16.0); MEAN CORPUSCULAR HEMOGLOBIN 29 pg (27.0-31.0); POTASSIUM 3.7 mmol/L (3.4-5.0)
[2019-01-02 08:10] VITALS: BP 136/58; PULSE 80; TEMP 98
--- NOTE | 2019-01-02 09:30 | NUR ---
Patient alert and oriented, answers questions appropriately. See assessment. Abdomen soft, non tender, non distended. Bowel sounds active x4 quads. +Flatus. Midline incision with edges well approximated, bill intact, no drainage noted. Velazquez catheter patent and draining clear yellow urine. BLE with 2+ edema noted. RUE with 2+ edema noted. No c/o at this time.
--- NOTE | 2019-01-02 11:28 | NUR ---
The patient is to discharge today, 01-02 to [facility] in [place] for a fpc stay. Enriqueta from [facility] reports they can transport the patient in-between [phone]. The patient's nurse, patient and both were in agreeance. SW attempted to contact the patient's daughter, Cherelle , SW left message.
[2019-01-02] MEDS ORDERED: RT ALBUTER2.5 MG/0.5 IH (12:11)
[2019-01-02] MEDS ORDERED: ZINC OXIDE 28GM TOP (12:13)
[2019-01-02] MEDS ORDERED: PROTONIX 40MG T40 MG PO (12:13)
[2019-01-02 12:33] VITALS: BP 142/51; PULSE 87; TEMP 98.2
--- NOTE | 2019-01-02 12:53 | NUR ---
resting alert and oriented to self. resting in bed at time of assessment. continues dependent drainage and has yet to pass a bowel movement. PCP started sennosides to help. transferring two person assist with gait belt and walker into and out of bed and chair. resident stating she still feels weak and her legs don't work. resident is concerned about going to alf for rehab. resident c/o of cough this morning so administered PRN Tessalon Mercedes. incision site MID ABD clean dry intact with no inflammation noted. resident complains of pain to area with movement. resident doesnt have big appeptite. bed in lowest position. call light within reach. this nurse reported off to LINDA Corado.
[2019-01-02 13:11] VITALS: BP 142/51; PULSE 87; TEMP 98.2
--- NOTE | 2019-01-02 13:44 | NUR ---
Patient discharged to [facility] in [place] at 1335 via wheelchair with transportation staff. Paperwork sent, report called.
== END 2019-01-02 13:35 | DRG 853 ==
LOC: COL.ER 03:11 → ICU 08:37 → SURG 12-31 18:13
PROVIDERS: Emergency Medicine; Internal Medicine Critical Care Medicine; Internal Medicine Pulmonary Disease; Nurse Practitioner Family; Student in an Organized Health Care Education/Training Program; Surgery; ADMIT Internal Medicine
PROC: 5A1935Z Respiratory Ventilation, Less than 24 Consecutive Hours (ICD-10-PCS; 2018-12-27)
PROC: 0BH17EZ Insertion of Endotracheal Airway into Trachea, Via Natural or Artificial Opening (ICD-10-PCS; 2018-12-27)
PROC: 05H633Z Insertion of Infusion Device into Left Subclavian Vein, Percutaneous Approach (ICD-10-PCS; 2018-12-27)
PROC: 0J980ZZ Drainage of Abdomen Subcutaneous Tissue and Fascia, Open Approach (ICD-10-PCS; principal; 2018-12-27 13:30)
PROC: 0WJF0ZZ Inspection of Abdominal Wall, Open Approach (ICD-10-PCS; 2018-12-27 13:30)
PROC: 0DT80ZZ Resection of Small Intestine, Open Approach (ICD-10-PCS; 2018-12-27 13:30)
PROC: 02HV33Z Insertion of Infusion Device into Superior Vena Cava, Percutaneous Approach (ICD-10-PCS; 2018-12-30)
DX: A41.9 Sepsis, unspecified organism (principal); R65.21 Severe sepsis with septic shock; J96.01 Acute respiratory failure with hypoxia; I21.A1 Myocardial infarction type 2; K56.609 Unspecified intestinal obstruction, unspecified as to partial versus complete obstruction; E87.2 Acidosis; K92.2 Gastrointestinal hemorrhage, unspecified; N17.9 Acute kidney failure, unspecified; I10 Essential (primary) hypertension; Z66 Do not resuscitate; D50.0 Iron deficiency anemia secondary to blood loss (chronic); G20 Parkinson's disease; M10.9 Gout, unspecified; M19.90 Unspecified osteoarthritis, unspecified site; Z79.01 Long term (current) use of anticoagulants; Z86.711 Personal history of pulmonary embolism; Z86.718 Personal history of other venous thrombosis and embolism; Z86.73 Personal history of transient ischemic attack (TIA), and cerebral infarction without residual deficits; Z88.0 Allergy status to penicillin; Z90.710 Acquired absence of both cervix and uterus
CPT/HCPCS: 99222; 99232-AI; A4216; A9284; C1751; C9113; J0171; J1170; J1650; J2185; J2250; J2270; J2370; J2405; J2704; J3010; J3430; J3475; J3480; J7030; J7050; J7060; J7120; P9016; Q9967

== ENCOUNTER 2019-05-27 15:04 | Inpatient (IN) | payer MEDICARE, BC ==
[~2019-05-27] VITALS: Ht 162.6 cm; Wt 64.5 kg
[~2019-05-27 15:04] MED LIST changes: +PROTONIX 40MG T40 MG PO; +RT ALBUTER2.5 MG/0.5 IH; +ZINC OXIDE 28GM TOP
[2019-06-22] VITALS (11 sets, daily range): BP systolic 112–154; BP diastolic 44–100; PULSE 69–84; TEMP 97–98
[2019-06-22] MEDS ORDERED: COUMADIN 3MG3 MG/TAB PO (03:23)
[2019-06-22] MEDS ORDERED: REQUIP 1MG T1 MG/TAB PO (03:24)
[2019-06-22] MEDS ORDERED: DEMADEX10 MG PO (03:26)
[2019-06-22] MEDS ORDERED: NORCO 325 MG-51 TAB PO (03:26)
[2019-06-22] MEDS ORDERED: CENA K20 MEQ/15 PO (03:28)
[2019-06-22] MEDS ORDERED: ELIQUIS 5MG PO (03:29)
[2019-06-22 06:21] LABS: INR 0.9 (0.8-3.0); PROTHROMBIN TIME 10.8 SECONDS (9.7-12.8)
--- NOTE | 2019-06-22 11:40 | NUR ---
First visit from the core microarchitect. No needs right now.
--- NOTE | 2019-06-22 12:07 | NUR ---
PT TO ROOM 330 PER BED WITH REPORT FROM SEBASTIEN MCKEON PACU @6479. PT IS A/O X3, LUNGS CLEAR, BS HYPO, DRESSING TO LEFT HIP CDI WITH BULKY OCCLUSIVE DRESSING OVER INCISION. PT DENIES PAIN, REPORTS NUMBNESS TO FINGERS BILATERALLY. IV TO PUMP, SCDS AND TEDS BILATERALLY. PT TOLERATING WELL.
--- NOTE | 2019-06-22 15:36 | NUR ---
DEBBIE met with the patient, her daughter (Cynthia Thompson, ph#[phone]), grandson, and a friend to discuss discharge plan. The patient lives in [place] with her daughter, Cherelle Nicolas (ph#[phone]). She reports independence with ADLs and has a cane, walker, and rolaider. The patient's PCP is Dr. Curt Wright and she receives her medications at [facility] in [place] and through [facility] mail order. She reports no difficulties obtaining her meds. The patient's advanced directives are in EMR. Her DPOA-HC is her daughter, Cherelle. The patient and her family report that they are interested in SNF upon discharge. DEBBIE presented and explained the Patient Choice Form and provided them with Medicare.gov's list of nursing homes in the [place] area. The patient chose 1) [facility] 2) [facility]. Patient Choice Form signed by the patient and she was provided a copy. DEBBIE attempted to contact Enriqueta at [facility]. DEBBIE left her a voicemail and faxed over the referral. DEBBIE contacted and faxed a referral to Diana at [facility]. SW awaiting their screens.
--- NOTE | 2019-06-22 16:29 | NUR ---
Diana, at [facility], reports that they are able to accept the patient for a skilled stay. SW to inform the patient and her family and will continue to follow.
--- NOTE | 2019-06-22 19:01 | NUR ---
REPORT TO IAN MCKEON.
--- NOTE | 2019-06-22 21:38 | NUR ---
Pt doing well. alert and oriented with vss. heart and lung sounds normal. +bowel sounds. has passed gas but no BM yet. L AC IV with NS and clindomycin running, tolerating well. LTH with bulky dressing, ice in place. Pt denies needs at this time. Call light within reach, will continue to monitor
--- NOTE | 2019-06-22 22:53 | NUR ---
Pt stood up at side of bed for about 2 minutes. STates she felt dizzy and did not want to walk even though encouraged. Tolerated standing up well x1 assist.
[2019-06-23 00:59] VITALS: BP 110/94; PULSE 82; TEMP 97.4
--- NOTE | 2019-06-23 04:08 | NUR ---
Pt has had uneventful night. Receiving pain meds per request/PRN orders. Has slept most of night. Got up 1x. Denies needs. Call light within reach, will continue to monitor
[2019-06-23 05:00] VITALS: BP 132/49; PULSE 95; TEMP 98.3
--- NOTE | 2019-06-23 05:16 | NUR ---
Pt has not had much urine output, about 150cc, and 1 small incont void. Bladder scanned patient, has less than 94mls. Fluids running at 100cc/hr
--- NOTE | 2019-06-23 06:22 | NUR ---
pt states she is in terrible pain, rates it at a 10. prn morphine given. on phone with daughter. stating she doesnt know why she is here, re-oriented with her surgery and why she is here. external cath in place. call light within reach, will continue to monitor
[2019-06-23 07:36] VITALS: BP 93/63; PULSE 89; TEMP 100.6
[2019-06-23 08:15] LABS: HEMATOCRIT 31.3 % (37.0-47.0); HEMOGLOBIN 9.4 g/dl (12.5-16.0)
[2019-06-23 11:48] VITALS: BP 108/32; BP 110/47; PULSE 81; TEMP 98.6
--- NOTE | 2019-06-23 11:56 | NUR ---
First visit from the pipe finisher. No needs right now.
--- NOTE | 2019-06-23 13:06 | NUR ---
DRESSING CHANGE COMPLETE. INCISION CDI. AQUACEL PLACED OVER INCISON PT TOLERATED WELL.
--- NOTE | 2019-06-23 14:14 | NUR ---
DEBIBE attempted to contact Enriqueta, at [facility], for an update on referral. DEBBIE left her a voicemail. DEBBIE then received a voicemail from Cynthia at [facility]. DEBBIE attempted to contact Cynthia back. DEBBIE left her a voicemail and faxed over updates. DEBBIE also faxed updates to Diana at [facility]. SW to continue to follow.
--- NOTE | 2019-06-23 15:23 | NUR ---
Cynthia, at [facility], reports that they are able to accept the patient for a skilled stay. Cynthia's extension at [facility] is [phone]. SW to update the patient and family and will continue to follow.
[2019-06-23 15:39] VITALS: BP 114/60; PULSE 85; TEMP 98.2
[2019-06-23 21:10] VITALS: BP 109/57; PULSE 81; TEMP 98.3
--- NOTE | 2019-06-23 22:49 | NUR ---
Pt is resting in bed. alert but partially oriented. Heart and lung sounds normal. Bowel sounds active x4 quad. Has IV to L forearm, INT. Tolerating PO fine but needs encouragment to drink fluids. Has external cath applied. Aquacell to L hip, CD&I. Pt given PRN pain medicine. Denies needs. Call light within reach, bed alarm on, will continue to monitor
--- NOTE | 2019-06-24 05:00 | NUR ---
Pt has slept most of night. Currently resting in bed. States pain is getting better. External catheter changed and had incontinent void, unmeasurable. Call light within reach, will continue to monitor
[2019-06-24 05:06] VITALS: BP 109/41; PULSE 83; TEMP 99.8
--- NOTE | 2019-06-24 07:26 | NUR ---
REPORT FROM IAN MCKEON. PT UP TO RECLINER FOR BREAKFAST.
[2019-06-24 07:41] LABS: HEMATOCRIT 29.2 % (37.0-47.0); HEMOGLOBIN 9.1 g/dl (12.5-16.0)
[2019-06-24 08:25] VITALS: BP 104/44; PULSE 85; TEMP 98.8
--- NOTE | 2019-06-24 09:25 | NUR ---
PT STRUGGELING WITH THERAPY. UP TO RECLINER WITH ASSIST X1 THEN HEAVY 2 TO DO THEARPY LATER IN AM. DAUGHTER IN ROOM AT THAT TIME.
[2019-06-24 12:10] VITALS: BP 92/68; PULSE 70; TEMP 98
--- NOTE | 2019-06-24 17:04 | NUR ---
DEBBIE faxed updates to Cynthia at [facility]. SW to continue to follow.
[2019-06-24 17:15] VITALS: BP 109/42; PULSE 78; TEMP 98.5
--- NOTE | 2019-06-24 20:25 | NUR ---
Pt resting in bed with daughter in room. Asked if she wanted to get up and walk, pt refused, encouraged her this is important. Pt still refused. PM meds given along with prn pain med per orders. External cath in place, cont suction,clear yellow urine. Denies needs. Call light within reach, will continue to monitor
[2019-06-24 21:16] VITALS: BP 111/39; PULSE 85; TEMP 99.6
[2019-06-25 03:51] VITALS: BP 123/42; PULSE 95; TEMP 98.7
[2019-06-25 07:27] VITALS: BP 130/43; PULSE 88; TEMP 98.8
--- NOTE | 2019-06-25 08:00 | NUR ---
PATIENT IS ORIENTED X2, DISPLAYS OCCATIONAL CONFUSION. PATIENT 2 MAX ASSIST WITH PT TO BEDSIDE CHAIR. EXT. CHANG REMOVED FOR ACTIVITY. PATIENT IS VERY INCONTINENT, BRIEF INPLACE. GROIN/COCCYX AREA RED FROM INCONTINENCE. BARRIER CREAM APPLIED. PATIENT NOW SITTING UP IN BEDSIDE CHAIR WITH BREAKFAST TRAY. AM MEDS GIVEN. HEAD TO TOE ASSESSMENT COMPLETE. LEFT HIP DRESSING IS CD&I WITH AQUACEL. LEFT FORARM IV TO INT. NO OTHER NEEDS. CALL LIGHT IN REACH.
--- NOTE | 2019-06-25 10:12 | NUR ---
The patient is to discharge today, 06/24, to [facility] for a skilled stay. Transportation was scheduled at 1300, via [facility]. DEBBIE informed the patient, her daughter (Cynthia), and RN. They were all in agreeance to the time. DEBBIE also presented and explained the IM form to the patient. The patient verbalized understanding, signed, and she was provided a copy. No additional needs at this time.
[2019-06-25 10:45] VITALS: BP 130/43; PULSE 88; TEMP 98.8
[2019-06-25 11:07] VITALS: BP 128/36; PULSE 88; TEMP 99.5
[2019-06-25 12:06] VITALS: BP 130/43; PULSE 88; TEMP 98.8
--- NOTE | 2019-06-25 13:10 | NUR ---
PATIENT DISCHARING VIA WITH 2 MAX ASSIST. [facility] ADRY HERE TO PICK HER UP. DAUGHTER IN ROOM AND PERSONAL BELONGINGS SENT. PATIENT DISCHARGED.
--- NOTE | 2019-06-25 13:20 | NUR ---
CALLED TO GIVE REPORT AND WAS TRANSFERED, TWICE, WITH NO ANSWER.
== END 2019-06-25 13:10 | DRG 470 ==
LOC: JCC 06-10 07:30
PROVIDERS: Nurse Anesthetist, Certified Registered; ADMIT Orthopaedic Surgery
PROC: 0SRB0JA Replacement of Left Hip Joint with Synthetic Substitute, Uncemented, Open Approach (ICD-10-PCS; principal; 2019-06-22 07:30)
DX: M16.12 Unilateral primary osteoarthritis, left hip (principal); M10.9 Gout, unspecified; I10 Essential (primary) hypertension; I25.2 Old myocardial infarction; Z86.718 Personal history of other venous thrombosis and embolism; Z86.711 Personal history of pulmonary embolism; Z79.01 Long term (current) use of anticoagulants
CPT/HCPCS: A9284; C1776; J2250; J2270; J2704; J2795; J7042; J7120